=== PATIENT | male | born 1965 | race Caucasian/White ===

== ENCOUNTER 2020-11-14 10:46 | Emergency (ER) | payer MEDICARE, OTHER ==
[~2020-11-14] VITALS: Ht 175.3 cm; Wt 123.6 kg
--- NOTE | 2020-11-14 11:54 | REP ---
INDICATION: CHEST PAIN. COMPARISON: 12/28/2014. TECHNIQUE: Single portable AP view of the chest was performed. FINDINGS: There is no acute infiltrate or pulmonary edema. Lungs are clear. The heart is enlarged. The mediastinal silhouette is unremarkable. The visualized osseous structures are intact. IMPRESSION: No acute pulmonary disease. <Electronically signed by Emmett Daley > 11/14/20 [id number]
[2020-11-14 12:02] LABS: BASO % 0.8 % (0.0-1.0); EOS # 0.2 10^3/uL (0.0-0.5); EOS % 5.3 % (0.0-3.0); HEMATOCRIT 40.5 % (42.0-52.0); HEMOGLOBIN 13.5 g/dl (13.5-17.5); LYMPH # 1.1 10^3/uL (1.5-5.0); LYMPH % 27.6 % (24.0-44.0); MEAN CORPUSCULAR HEMOGLOBIN 31.2 pg (27.0-33.0); MEAN CORPUSCULAR HGB CONC 33.3 g/dl (32.0-36.5); MEAN CORPUSCULAR VOLUME 93.5 fl (80.0-96.0); MONO # 0.4 10^3/uL (0.0-0.8); MONO % 10.3 % (2.0-8.0); NEUTROPHILS # 2.2 10^3/uL (1.5-8.5); NEUTROPHILS % 55.7 % (36.0-66.0); PLATELET COUNT, AUTOMATED 192 10^3/uL (150-450); RED BLOOD COUNT 4.33 10^6/uL (4.30-6.10)
[2020-11-14] MEDS ORDERED: NITROGLYCERIN 0.4 MG SUBL TABLET SL PRN (12:10)
[2020-11-14 12:26] LABS: ALBUMIN 3.9 GM/DL (3.2-5.2); ALT/SGPT 33 U/L (12-78); BILIRUBIN,DIRECT 0.1 MG/DL (0.0-0.2); BILIRUBIN,TOTAL 0.4 MG/DL (0.2-1.0); BLOOD UREA NITROGEN 15 MG/DL (7-18); CALCIUM LEVEL 9.1 MG/DL (8.5-10.1); CARBON DIOXIDE LEVEL 29 MEQ/L (21-32); CHLORIDE LEVEL 106 MEQ/L (98-107); CREATININE FOR GFR 0.86 MG/DL (0.70-1.30); GLOMERULAR FILTRATION RATE > 60.0 (>56); GLUCOSE, FASTING 97 MG/DL (70-100); LIPASE 64 U/L (73-393); NT-PRO BNP 21 PG/ML (<125); POTASSIUM SERUM 4.2 MEQ/L (3.5-5.1); SODIUM LEVEL 140 MEQ/L (136-145); TOTAL PROTEIN 7.1 GM/DL (6.4-8.2)
[2020-11-14] MEDS ORDERED: ALLO10TA PO (12:49)
[2020-11-14] MEDS ORDERED: [UNRECOGNIZED DRUG - CODE] PO (12:49)
[2020-11-14] MEDS ORDERED: FLON27.5 (12:49)
[2020-11-14] MEDS ORDERED: VERA120T4 PO (12:49)
[2020-11-14] MEDS ORDERED: TRAZ-189 PO (12:49)
[2020-11-14] MEDS ORDERED: OMEP-218 PO (12:49)
[2020-11-14] MEDS ORDERED: TERA2CAP3 PO (12:49)
[2020-11-14] MEDS ORDERED: LORA2CON5 PO (12:49)
[2020-11-14] MEDS ORDERED: AMLO1TAB25 PO (12:49)
[2020-11-14] MEDS ORDERED: PRAV40TA2 PO ×2 (12:49)
[2020-11-14] MEDS ORDERED: LAMO250T PO ×2 (12:49)
[2020-11-14] MEDS ORDERED: DOXY100C3 PO (12:49)
[2020-11-14] MEDS ORDERED: POTA10TA17 PO (12:49)
[2020-11-14] MEDS ORDERED: VIMP150T PO (12:49)
[2020-11-14] MEDS ORDERED: D3 +TAB PO ×2 (12:51)
[2020-11-14] MEDS ORDERED: ISOVUE-370 76% 100ML VIAL As Ordered ONE (16:18)
[2020-11-14] MEDS ORDERED: ASPI81TA26 PO (18:19)
--- NOTE | 2020-11-14 18:44 | REP ---
INDICATION: pleuritic CP r/o PE. COMPARISON: None. TECHNIQUE: CT angiogram chest performed following the intravenous administration of 100 cc of Isovue 370. Sagittal and coronal reconstruction images are performed. FINDINGS: The study is submitted to ca for interpretation 6:30 p.m. 11/14/2020 for reasons unknown to me. Study is limited due to patient motion. Lungs: Clear, no infiltrate or nodule. Mediastinum: No adenopathy. Pulmonary arteries: No evidence of pulmonary embolism. Evaluation is limited by motion. Viki: No adenopathy. Axilla: No adenopathy. Pleura: No effusion. Heart: Not enlarged. Thoracic aorta: No aneurysm or dissection. Upper abdominal structures: Unremarkable. Visualized osseous structures: There are degenerative changes of the spine without compression deformity.. Left pacemaker is noted. IMPRESSION: No definite CT evidence of pulmonary embolism, evaluation is limited by motion artifact. No infiltrate seen. <Electronically signed by Emmett Daley > 11/14/20 [id number]
[2020-11-14 19:00] VITALS: BP 144/73
--- NOTE | 2020-11-15 06:47 | ECGEPIP ---
[facility] - ED Test Date: 2020-11-14 Pat Name: XIAO PAYNE Department: Room: - Gender: Male [employer] Work[employer]: JEAN PAUL : 1965 Requested By: Floridalma Miller Order Number: [id number] Reading MD: Katelyn Bull Measurements Intervals Maxwell Rate: 72 P: 1 VT: 158 QRS: -3 QRSD: 90 T: 11 QT: 388 QTc: 424 Interpretive Statements Normal sinus rhythm Inferior infarct , age undetermined Delayed R wave progression Nonspecific ST T wave changes cw 12/28/[address] T wave changes Electronically Signed on 11-15-2020 6:47:12 EDT by Katelyn Bull
== END 2020-11-14 19:21 | disposition home or self-care (01) ==
LOC: EDBD 10:46 → M ED 10:46
DX: R07.9 Chest pain, unspecified (principal); R94.31 Abnormal electrocardiogram [ECG] [EKG]; I25.2 Old myocardial infarction; I10 Essential (primary) hypertension; K21.9 Gastro-esophageal reflux disease without esophagitis; E78.70 Disorder of bile acid and cholesterol metabolism, unspecified; Z79.51 Long term (current) use of inhaled steroids; Z79.899 Other long term (current) drug therapy; Z88.8 Allergy status to other drugs, medicaments and biological substances; Z86.69 Personal history of other diseases of the nervous system and sense organs; Z82.49 Family history of ischemic heart disease and other diseases of the circulatory system
CPT/HCPCS: 71045; 71275; 80048; 80076; 80175; 83690; 83880; 84484; 85025; 93005; 93041; 94760; 99285; Q9967

== ENCOUNTER → 2021-04-04 | Outpatient (REF) ==
[~2021-04-04] MED LIST: ALLO10TA PO; AMLO1TAB25 PO; ASPI81TA26 PO; D3 +TAB PO; DOXY100C3 PO; FLON27.5; LAMO250T PO; LORA2CON5 PO; OMEP-218 PO; POTA10TA17 PO; PRAV40TA2 PO; TERA2CAP3 PO; TRAZ-189 PO; VERA120T71 PO; VIMP150T PO; [UNRECOGNIZED DRUG - CODE] PO
== END ==
LOC: M LABSMTC 10:03
PROVIDERS: ATTEND Pediatrics
DX: Z11.52 Encounter for screening for COVID-19 (principal)

== ENCOUNTER → 2021-08-26 | Outpatient (CLI) | payer MEDICARE, OTHER ==
[~2021-08-26] MED LIST changes: +OMEP-173 PO; -OMEP-218 PO
== END ==
LOC: M ADAMS 15:12
PROVIDERS: ATTEND Physician Assistant
DX: M25.531 Pain in right wrist (principal)

== ENCOUNTER → 2022-07-30 | Outpatient (CLI) | payer OTHER ==
[~2022-07-30] MED LIST changes: +POTA-150 PO; -POTA10TA17 PO
== END ==
LOC: M PLAIMG 09:32
PROVIDERS: ATTEND Nurse Practitioner Family
DX: N20.0 Calculus of kidney (principal)

== ENCOUNTER 2022-11-09 12:35 | Day surgery (SDC) | payer MEDICARE, OTHER ==
[~2022-11-09] VITALS: Ht 175.3 cm; Wt 116.5 kg
[~2022-11-09 12:35] MED LIST changes: +FINA5TAB2 PO; +LORA2TAB14 PO; +NS 1,000 ML IV ONE; +POTA-298 PO; +VIMP200T PO; +VITA100093 PO
[2022-11-09] MEDS ORDERED: propofoL 200 MG/20 ML VIAL As Ordered ONE ×2 (15:35→15:46)
[2022-11-09 16:25] VITALS: BP 129/61; O2SAT 96
== END 2022-11-09 16:38 | disposition home or self-care (01) ==
LOC: M OPP 12:35
PROVIDERS: ATTEND Internal Medicine Gastroenterology
DX: Z12.11 Encounter for screening for malignant neoplasm of colon (principal); D12.3 Benign neoplasm of transverse colon; K64.0 First degree hemorrhoids; K57.30 Diverticulosis of large intestine without perforation or abscess without bleeding; Z88.6 Allergy status to analgesic agent
CPT/HCPCS: 88305; G0121